=== PATIENT | female | born 1965 | race Caucasian/White ===

== ENCOUNTER 2016-11-18 08:23 | Emergency (ER) | payer OTHER ==
[2016-11-18] MEDS ORDERED: Morphine INJ* 4 MG/ML 1 ML CARPUJECT IV ONE (09:53)
[2016-11-18] MEDS ORDERED: NS 0.9% 1000 ML* 1,000 ML IV ONE (09:53)
[2016-11-18] MEDS ORDERED: Ondansetron INJ* 2 MG/ML VIAL IV ONE (09:53)
[2016-11-18 10:50] LABS: Hematocrit 33 % (35-47); Hemoglobin 10.8 g/dl (12.0-16.0); Mean Corpuscular HGB Conc 32 g/dl (31-36); Mean Corpuscular Hemoglobin 28 pg (27-31); Mean Corpuscular Volume 86 fL (80-97); Mean Platelet Volume 8 um3 (7.4-10.4); Red Blood Count 3.87 10^6/ul (4.0-5.4); Red Cell Distribution Width 14 % (10.5-15); White Blood Count 6.5 10^3/ul (3.5-10.8)
[2016-11-18 11:05] LABS: Urine Bilirubin Negative (Negative); Urine Glucose Negative (Negative); Urine Nitrite Negative (Negative)
[2016-11-18 11:15] LABS: BUN/Creatinine Ratio 21.1 (8-20); C Reactive Protein 4.97 mg/L (< 5.00); Calcium 9.2 mg/dL (8.6-10.3); EGFR African American 112.5 (>60); EGFR Non-African American 87.5 (>60); Globulin 2.8 g/dL (2-4); Total Bilirubin 0.4 mg/dL (0.2-1.0); Total Protein 6.8 g/dL (6.4-8.9)
[2016-11-18] MEDS ORDERED: Iohexol 350* (CONTRAST) 500 ML MDV IV ONE (11:19)
--- NOTE | 2016-11-18 11:23 | RAD ---
HISTORY: Left lower extremity swelling COMPARISONS: None relevant TECHNIQUE: Multiple transverse and longitudinal ultrasound images were obtained of the left lower extremity from the level of the common femoral vein inferiorly through to the infrapopliteal veins using grayscale, color Doppler, and spectral Doppler imaging with and without compression and with augmentation. Comparison images were obtained of the contralateral common femoral vein. FINDINGS: VEINS: The venous system of the left lower extremity is compressible throughout its course, with normal flow on color Doppler imaging and normal response to augmentation on spectral Doppler imaging. SOFT TISSUES: Unremarkable. OTHER FINDINGS: None. IMPRESSION: NO LEFT LOWER EXTREMITY DEEP VEIN THROMBOSIS
--- NOTE | 2016-11-18 12:26 | RAD ---
HISTORY: Back pain radiating to abdomen, breast cancer, metastatic disease COMPARISONS: None TECHNIQUE: Multiple contiguous axial CT scans were obtained of the chest, abdomen, and pelvis after the administration of intravenous contrast. Coronal and sagittal multiplanar reformations are submitted for review.. Oral contrast was administered. Delayed images were obtained through the abdomen FINDINGS: CHEST NECK AND THYROID: The lower neck and thyroid are unremarkable. CHEST WALL: There is no lower cervical, axillary, or supraclavicular lymphadenopathy by size criteria. A right-sided chest port is noted HEART AND PERICARDIUM: The heart is unremarkable. AORTA AND PULMONARY VASCULATURE: There is no pulmonary arterial filling defect to suggest pulmonary was. The aorta is unremarkable. MEDIASTINUM: There is no mediastinal lymphadenopathy by size criteria. WEST: There is no hilar lymphadenopathy by size criteria. AIRWAY AND ESOPHAGUS: The airway is unremarkable, without endobronchial filling defect. The esophagus is grossly normal. LUNG PARENCHYMA: There is minimum dependent atelectasis of the lung bases bilaterally. PLEURA: No pleural abnormalities are noted. BONES AND SOFT TISSUES: Mild degenerative changes are noted ABDOMEN/PELVIS: LIVER: There are multiple heterogeneously low-attenuation lesions of the liver. BILE DUCTS: There is no intrahepatic or extrahepatic biliary dilatation. GALLBLADDER: The gallbladder is normal, without pericholecystic inflammatory change. PANCREAS: The pancreas is normal, without mass or ductal dilatation. SPLEEN: Normal in size and appearance. UPPER GI TRACT: Evaluation of the gastrointestinal tract is limited by incomplete gastric distention. There is mucosal thickening of the pylorus and proximal duodenum with stranding of the adjacent fat. SMALL BOWEL \T\ MESENTERY: The small bowel is normal in contour, course, and caliber. There is no obstruction or dilatation. COLON: The colon is normal in contour, course, caliber. There is no pericolonic inflammatory change. ADRENALS: Normal bilaterally. KIDNEYS: The kidneys are normal in shape, size, contour, and axis. There is no hydronephrosis or nephrolithiasis. BLADDER: The bladder is smooth in contour. PELVIC ORGANS: The uterus and adnexa are grossly normal for technique. AORTA: The aorta is normal. IVC: Unremarkable LYMPH NODES: There are multiple subcentimeter short axis mesenteric lymph nodes. There is no lymphadenopathy by size criteria. ABDOMINAL WALL: There is no evidence for abdominal wall hernia. BONES: Degenerative changes are noted of the spine OTHER: None IMPRESSION: 1. NO PULMONARY ARTERIAL FILLING DEFECTS TO SUGGEST PULMONARY WAS. 2. MULTIPLE HEPATIC LOW-ATTENUATION LESIONS CONSISTENT WITH THE HISTORY OF METASTATIC DISEASE. 3. THERE IS MUCOSAL THICKENING WITH INFLAMMATORY CHANGE SURROUNDING THE PYLORUS AND PROXIMAL DUODENUM. THE DIFFERENTIAL INCLUDES ENTERITIS VERSUS PEPTIC ULCER DISEASE VERSUS MUCOSAL NEOPLASM. RECOMMEND CONSIDERATION OF CORRELATION WITH DIRECT VISUALIZATION.
--- NOTE | 2016-11-18 12:57 | ED ---
Brett Schwab [place], scribed for Manish Mckeon MD on 11/18/16 at 0853 . Abdominal Pain/Female - HPI Summary HPI Summary: Patient is a 51 y/o female who presents to [facility] with constant abd pain that has intensified in the last week and a half. Pain has been intermittent since August 2016, but it has been constant this week and a half. It is localized in the upper back, but radiating to the abd. She reports nausea, loss of sleep, and edema in the left lower extremity, but denies SOB. She also reports left toe erythema and right eye erythema. She is a breast CA pt who received chemotherapy weekly for 20 weeks until a week and a half ago. No DM. - History of Current Complaint Chief Complaint: EDAbdPain Stated Complaint: POSSIBEL INFECTION IN FOOT Time Seen by Provider: 11/18/16 08:35 Hx Obtained From: Patient, Family/Compensation Manager Onset/Duration: Gradual Onset, Lasting Days Timing: Constant Pain Intensity: 8 Pain Scale Used: 0-10 Numeric Location: Other - Back pain that radiates to abd. Aggravating Factor(s): Nothing Alleviating Factor(s): Nothing Associated Signs and Symptoms: Positive: Back Pain, Nausea, Other: - No SOB. Edema in left lower extremity. Allergies/Adverse Reactions: Allergies Allergy/AdvReac Type Severity Reaction Status Date / Time Penicillins [PCN] Allergy Severe GI Upset Verified 11/18/16 08:29 PMH/Surg Hx/FS Hx/Imm Hx Endocrine/Hematology History: Denies: Hx Diabetes - Cancer History Cancer Type, Location and Year: Breast CA, 2015 Infectious Disease History: No Infectious Disease History: Denies: Traveled Outside the [place] in Last 30 Days - Family History Known Family History: Negative: Cardiac Disease, Diabetes - Social History Lives: With Family - . Review of Systems Positive: Fatigue - Loss of sleep. Positive: Erythema - Right eye. Negative: Shortness Of Breath Positive: Nausea Positive: Edema - Left lower extremity. Positive: Other - Left toe erythema. All Other Systems Reviewed And Are Negative: Yes Physical Exam Triage Information Reviewed: Yes Vital Signs On Initial Exam: Initial Vitals Temp Pulse Resp BP Pulse Ox 97.4 F 91 22 168/76 100 11/18/16 08:24 11/18/16 08:24 11/18/16 08:24 11/18/16 08:24 11/18/16 08:24 Vital Signs Reviewed: Yes Appearance: Positive: Well-Appearing, No Pain Distress Skin: Positive: Dry, Pale, Other - Left lateral great toe erythema. Head/Face: Positive: Normal Head/Face Inspection Eyes: Positive: EOMI, KESHAWN, Other: - Stye in left lower eye lid. ENT: Positive: Normal ENT inspection Neck: Positive: Supple, Nontender Respiratory/Lung Sounds: Positive: Clear to Auscultation, Breath Sounds Present Cardiovascular: Positive: RRR Abdomen Description: Positive: Nontender, Soft. Negative: CVA Tenderness (R), CVA Tenderness (L) Bowel Sounds: Positive: Present Musculoskeletal: Positive: Edema Left - Calf. Neurological: Positive: Normal, Sensory/Motor Intact, Alert, Oriented to Person Place, Time Psychiatric: Positive: Affect/Mood Appropriate Diagnostics - Vital Signs Vital Signs Temp Pulse Resp BP Pulse Ox 11/18/16 08:24 97.4 F 91 22 168/76 100 - Laboratory Lab Results: Lab Results 11/18/16 11/18/16 11/18/16 Range/Units 10:30 10:30 10:30 WBC 6.5 (3.5-10.8) 10^3/ul RBC 3.87 L (4.0-5.4) 10^6/ul Hgb 10.8 L (12.0-16.0) g/dl Hct 33 L (35-47) % MCV 86 (80-97) fL MCH 28 (27-31) pg MCHC 32 (31-36) g/dl RDW 14 (10.5-15) % Plt Count 285 (150-450) 10^3/ul MPV 8 (7.4-10.4) um3 Neut % (Auto) 77.4 (38-83) % Lymph % (Auto) 11.3 L (25-47) % Oldham % (Auto) 9.2 H (1-9) % Eos % (Auto) 1.6 (0-6) % Baso % (Auto) 0.5 (0-2) % Absolute Neuts (auto) 5.0 (1.5-7.7) 10^3/ul Absolute Lymphs (auto) 0.7 L (1.0-4.8) 10^3/ul Absolute Monos (auto) 0.6 (0-0.8) 10^3/ul Absolute Eos (auto) 0.1 (0-0.6) 10^3/ul Absolute Basos (auto) 0 (0-0.2) 10^3/ul Absolute Nucleated RBC 0 10^3/ul Nucleated RBC % 0 INR (Anticoag Therapy) 0.92 (0.89-1.11) APTT 33.5 (26.0-36.3) seconds Sodium 137 (133-145) mmol/L Potassium 4.0 (3.5-5.0) mmol/L Chloride 105 (101-111) mmol/L Carbon Dioxide 24 (22-32) mmol/L Anion Gap 8 (2-11) mmol/L BUN 15 (6-24) mg/dL Creatinine 0.71 (0.51-0.95) mg/dL Est GFR ( Amer) 112.5 (>60) Est GFR (Non-Af Amer) 87.5 (>60) BUN/Creatinine Ratio 21.1 H (8-20) Glucose 106 H (70-100) mg/dL Lactic Acid (0.5-2.0) mmol/L Calcium 9.2 (8.6-10.3) mg/dL Total Bilirubin 0.40 (0.2-1.0) mg/dL AST 13 (13-39) U/L ALT 11 (7-52) U/L Alkaline Phosphatase 106 H (34-104) U/L Troponin I 0.00 (<0.04) ng/mL C-Reactive Protein 4.97 (< 5.00) mg/L Total Protein 6.8 (6.4-8.9) g/dL Albumin 4.0 (3.2-5.2) g/dL Globulin 2.8 (2-4) g/dL Albumin/Globulin Ratio 1.4 (1-3) Lipase 18 (11.0-82.0) U/L Urine Color Urine Appearance Urine pH (5-9) Ur Specific Garfield (1.010-1.030) Urine Protein (Negative) Urine Ketones (Negative) Urine Blood (Negative) Urine Nitrate (Negative) Urine Bilirubin (Negative) Urine Urobilinogen (Negative) Ur Leukocyte Esterase (Negative) Urine Glucose (Negative) 02/18/17 02/18/17 Range/Units 10:30 10:40 WBC (3.5-10.8) 10^3/ul RBC (4.0-5.4) 10^6/ul Hgb (12.0-16.0) g/dl Hct (35-47) % MCV (80-97) fL MCH (27-31) pg MCHC (31-36) g/dl RDW (10.5-15) % Plt Count (150-450) 10^3/ul MPV (7.4-10.4) um3 Neut % (Auto) (38-83) % Lymph % (Auto) (25-47) % Oldham % (Auto) (1-9) % Eos % (Auto) (0-6) % Baso % (Auto) (0-2) % Absolute Neuts (auto) (1.5-7.7) 10^3/ul Absolute Lymphs (auto) (1.0-4.8) 10^3/ul Absolute Monos (auto) (0-0.8) 10^3/ul Absolute Eos (auto) (0-0.6) 10^3/ul Absolute Basos (auto) (0-0.2) 10^3/ul Absolute Nucleated RBC 10^3/ul Nucleated RBC % INR (Anticoag Therapy) (0.89-1.11) APTT (26.0-36.3) seconds Sodium (133-145) mmol/L Potassium (3.5-5.0) mmol/L Chloride (101-111) mmol/L Carbon Dioxide (22-32) mmol/L Anion Gap (2-11) mmol/L BUN (6-24) mg/dL Creatinine (0.51-0.95) mg/dL Est GFR ( Amer) (>60) Est GFR (Non-Af Amer) (>60) BUN/Creatinine Ratio (8-20) Glucose (70-100) mg/dL Lactic Acid 0.7 (0.5-2.0) mmol/L Calcium (8.6-10.3) mg/dL Total Bilirubin (0.2-1.0) mg/dL AST (13-39) U/L ALT (7-52) U/L Alkaline Phosphatase (34-104) U/L Troponin I (<0.04) ng/mL C-Reactive Protein (< 5.00) mg/L Total Protein (6.4-8.9) g/dL Albumin (3.2-5.2) g/dL Globulin (2-4) g/dL Albumin/Globulin Ratio (1-3) Lipase (11.0-82.0) U/L Urine Color Colorless Urine Appearance Clear Urine pH 6.0 (5-9) Ur Specific Garfield 1.002 L (1.010-1.030) Urine Protein Negative (Negative) Urine Ketones Negative (Negative) Urine Blood Negative (Negative) Urine Nitrate Negative (Negative) Urine Bilirubin Negative (Negative) Urine Urobilinogen Negative (Negative) Ur Leukocyte Esterase Negative (Negative) Urine Glucose Negative (Negative) Result Diagrams: 11/18/16 10:30 11/18/16 10:30 Lab Statement: Any lab studies that have been ordered have been reviewed, and results considered in the medical decision making process. - CT CHEST/ABD/PELVIS CT Interpretation Completed By: Radiologist - IMPRESSION: 1. NO PULMONARY ARTERIAL FILLING DEFECTS TO SUGGEST PULMONARY WAS. 2. MULTIPLE HEPATIC LOW- ATTENUATION LESIONS CONSISTENT WITH THE HISTORY OF METASTATIC DISEASE. 3. THERE IS MUCOSAL THICKENING WITH INFLAMMATORY CHANGE SURROUNDING THE PYLORUS AND PROXIMAL DUODENUM. THE DIFFERENTIAL INCLUDES ENTERITIS VERSUS PEPTIC ULCER DISEASE VERSUS MUCOSAL NEOPLASM. RECOMMEND CONSIDERATION OF CORRELATION WITH DIRECT VISUALIZATION. - Ultrasound No standard instances Ultrasound Interpretation Completed By: Radiologist - IMPRESSION: NO LEFT LOWER EXTREMITY DEEP VEIN THROMBOSIS Abdominal Pain Fem Course/Dx - Course Course Of Treatment: Discussed results with patient. sent home with copy of labs /results and cts on disc so patient can share results with her oncologist. Discharge home stable. - Diagnoses Provider Diagnoses: Cellulitis, Chest pain Discharge - Discharge Plan Condition: Stable Disposition: HOME Prescriptions: Cephalexin CAP* [Keflex CAP*] 500 mg PO QID #39 cap traMADol TAB* [Ultram*] 50 mg PO Q6HR PRN #20 tab MDD 4 PRN Reason: Pain Patient Education Materials: Cellulitis (ED), Chest Pain (ED) Additional Instructions: FOLLOW UP WITH YOUR DOCTOR. RETURN TO THE EMERGENCY DEPARTMENT FOR ANY WORSENING OF YOUR CONDITION OR QUESTIONS OR CONCERNS. The documentation as recorded by the Brett witt Salem accurately reflects the service I personally performed and the decisions made by , Manish Mckeon MD.
[2016-11-18] MEDS ORDERED: Cephalexin CAP* 500 MG PO ONE (12:59)
[2016-11-18 13:14] VITALS: BP 119/68
== END 2016-11-18 13:12 | disposition home or self-care (01) ==
LOC: ED 08:23
DX: L03.90 Cellulitis, unspecified (principal); R07.9 Chest pain, unspecified; M54.9 Dorsalgia, unspecified; R11.0 Nausea; R53.83 Other fatigue; R60.9 Edema, unspecified; C50.919 Malignant neoplasm of unspecified site of unspecified female breast; Z92.21 Personal history of antineoplastic chemotherapy
CPT/HCPCS: 36415; 71275; 74177; 80053; 81003; 83605; 83690; 84484; 85025; 85610; 85730; 86140; 87040; 96374; 96375; 99283; A9270-GY; J2270; J2405; Q9967